=== PATIENT | male | born 1930 | race Caucasian/White ===

== ENCOUNTER 2016-09-20 12:22 | Emergency (ER) | payer MEDICARE ==
[2016-09-20] MEDS ORDERED: POVIDONE IODINE 10 % 15 ML UD TOP ONE (12:35)
--- NOTE | 2016-09-20 13:00 | ED.PDOC ---
History of Present Illness - General Chief Complaint: Upper Extremity Injury Stated Complaint: laceration 4th and 5th digit right hand Time Seen by Provider: 09/20/16 12:57 Source: patient, family Exam Limitations: no limitations - History of Present Illness Initial Comments: He stated was going down the orthodoxy stair step he missed one of the step slipped fell off the floor landing on his right hand,no neck,head hip injury or pain. Occurred: just prior to arrival Pain - Upper Extremity: moderate: Hand, right Method of Injury: fell Improving Factors: nothing Worsening Factors: movement Allergies/Adverse Reactions: Allergies NO KNOWN ALLERGY Allergy (Verified 09/20/16 12:31) Home Medications: Ambulatory Orders Acetaminophen W/ Codeine [Tylenol w/Codeine 300-30 mg] 1 tab PO TID PRN #14 tab 09/20/16 Cephalexin 1,000 mg PO BID #30 cap 09/20/16 Review of Systems - Review of Systems Constitutional: States: no symptoms reported EENTM: States: no symptoms reported Respiratory: States: no symptoms reported Cardiology: States: no symptoms reported Gastrointestinal/Abdominal: States: no symptoms reported Genitourinary: States: no symptoms reported Musculoskeletal: States: no symptoms reported Skin: States: other - laceration finger right 5th digit Neurological: States: no symptoms reported Endocrine: States: no symptoms reported Past Medical History (General) - Patient Medical History Hx Stroke: No Hx Cardiac Disorders: Yes Hx Congestive Heart Failure: No Hx Diabetes: No Hx Cancer: Yes - neck Surgical History: coronary bypass surgery, other - neck,hernia repair - Vaccination History Hx Influenza Vaccination: Yes Hx Pneumococcal Vaccination: Yes - Social History Hx Tobacco Use: No Family Medical History - Family History Father Family History: No Known Living Status: Hx Family Hypertension: Yes - parents Hx Cardiac Disease: Yes - parents Physical Exam - Physical Exam General Appearance: Alert, Comfortable, No apparent distress Eyes, Ears, Nose, Throat Exam: PERRL/EOMI, normal ENT inspection Neck: non-tender, full range of motion, supple Cardiovascular/Respiratory: regular rate, rhythm, no M/R/G, normal peripheral pulses, no JVD Abdominal Exam: non-tender, no organomegaly Shoulder Exam: normal inspection, non-tender, no evidence of injury, normal ROM Elbow/Forearm Exam: normal inspection, non-tender, no evidence of injury, normal ROM Wrist Exam: normal inspection, non-tender, no evidence of injury Hand Exam: laceration - 3 cm 4th and 5th digit, limited ROM - dislocated dip joint 5th digit right, soft tissue tenderness Neuro/Tendon: normal sensation, normal motor functions, normal tendon functions Mental Status: alert, oriented x 3 Progress - EKG/XRAY/CT XRAY: hand - right dip joint 5th digit dislocated Procedures - Joint Reduction 5th finger Reduction Attempts: 1 Pre-Procedure NV Exam: No Post Joint Reduction Film: no fracture seen - Laceration/Wound Repair Right Finger Wound Length (cm): 3 - laceration (R) 4th/5th digit Wound's Depth, Shape: superficial, irregular Wound Explored: no foreign body removed Irrigated w/ Saline (cc's): 50 Betadine Prep?: Yes Anesthesia: 1% Lidocaine Volume Anesthetic (cc's): 10 Layer Closure?: No Sterile Dressing Applied?: Yes Splint Applied?: Yes - maximiliano taping (r) 4th/5th digit Departure - Departure Clinical Impression: Fall down steps Qualifiers: Encounter type: initial encounter Qualifier Code: (W10.8XXA) Fall (on) (from) other stairs and steps, initial encounter Finger laceration with complication Qualifiers: Encounter type: initial encounter Qualifier Code: (S61.219A) Laceration without foreign body of unspecified finger without damage to nail, initial encounter Dislocation of finger, interphalangeal joint, right, open Qualifiers: Encounter type: initial encounter Qualifier Code: (S63.279A) Dislocation of unspecified interphalangeal joint of unspecified finger, initial encounter Time of Disposition: 14:05 Disposition: Discharge to Home or Self Care Condition: Good Departure Forms: ED Discharge - Pt. Copy, Patient Portal Self Enrollment Instructions: How to Care for a Surgical Wound-Stitches Referrals: Cedrick Silveira III, MD [Primary Care Provider] - 1-2 Weeks Prescriptions: Cephalexin 1,000 mg PO BID #30 cap Acetaminophen W/ Codeine [Tylenol w/Codeine 300-30 mg] 1 tab PO TID PRN #14 tab PRN Reason: Pain Home Medications: Ambulatory Orders Acetaminophen W/ Codeine [Tylenol w/Codeine 300-30 mg] 1 tab PO TID PRN #14 tab 09/20/16 Cephalexin 1,000 mg PO BID #30 cap 09/20/16 Additional Instructions: RETURN TO EMERGENCY ROOM NEEDED;REMOVAL OF SUTURES 10/02/2016 [facility]; Follow up with marie conrad in one week as needed
--- NOTE | 2016-09-20 13:01 | RAD ---
EXAM DESCRIPTION: X-RAY 5th digit of the right hand . CLINICAL HISTORY: Fall and pain in the 5th digit COMPARISON: None TECHNIQUE: 3.0 views of the 5th digit of the right hand. FINDINGS: There is posterolateral dislocation of the distal phalanx of the 5th digit of the left hand. The adjacent soft tissues are unremarkable . There is no visualization of radiopaque foreign bodies in the soft tissues. IMPRESSION: There is posterolateral dislocation of the distal phalanx of the 5th digit of the left hand. Electronically signed by: Bhupendra Harvey MD 09/20/2016 12:58
[2016-09-20] MEDS ORDERED: LIDOCAINE 1% 10 ML VIAL INJ ONE (13:10)
[2016-09-20] MEDS ORDERED: NEOMYCIN-BACITRACIN-POLYMYXIN 0.9 GM UD TOP ONE (13:41)
[2016-09-20] MEDS ORDERED: TETANUS-DIPHTHERIA TOXOIDS (TD 1 EA SYG IM ONE (14:02)
--- NOTE | 2016-09-20 14:23 | RAD ---
EXAM DESCRIPTION: X-RAY right 5th digit . CLINICAL HISTORY: Status post reduction of the dislocated 5th digit of the right hand COMPARISON: Pre reduction study done on the same day. TECHNIQUE: 3.0 views of the 5th digit of the right hand. FINDINGS: There is interval successful reduction of the dislocated distal phalanx of the 5th digit of the right hand. The remainder of the bones of the 5th digit of the right hand are intact The soft tissues are unremarkable IMPRESSION: There is interval successful reduction of the dislocated distal phalanx of the 5th digit of the right hand. The remainder of the bones of the 5th digit of the right hand are intact Electronically signed by: Bhupendra Harvey MD 09/20/2016 14:20
[2016-09-20 14:40] VITALS: BP 146/73; TEMP 98.2; O2SAT 97
== END 2016-09-20 14:39 | disposition home or self-care (01) ==
LOC: ER 12:22
DX: S61.218A Laceration without foreign body of other finger without damage to nail, initial encounter (principal); S63.276A Dislocation of unspecified interphalangeal joint of right little finger, initial encounter; Z95.1 Presence of aortocoronary bypass graft; W10.9XXA Fall (on) (from) unspecified stairs and steps, initial encounter; Y92.22 Religious institution as the place of occurrence of the external cause

== ENCOUNTER → 2017-01-20 | Outpatient (CLI) | payer MEDICARE | END | disposition home or self-care (01) | LOC: GMAL 10:35 | PROVIDERS: ATTEND Family Medicine | DX: D51.3 Other dietary vitamin B12 deficiency anemia (principal); E55.9 Vitamin D deficiency, unspecified ==

== ENCOUNTER → 2017-06-22 | Outpatient (CLI) | payer MEDICARE | END | disposition home or self-care (01) | LOC: GMAL 10:19 | PROVIDERS: ATTEND Family Medicine | DX: D51.3 Other dietary vitamin B12 deficiency anemia (principal); I10 Essential (primary) hypertension; Z79.899 Other long term (current) drug therapy ==

== ENCOUNTER → 2018-01-17 | Outpatient (CLI) | payer MEDICARE | LOC: GMAL 10:45 | PROVIDERS: ATTEND Family Medicine | DX: D51.3 Other dietary vitamin B12 deficiency anemia (principal); I50.89 Other heart failure; R53.83 Other fatigue; E55.9 Vitamin D deficiency, unspecified; Z79.899 Other long term (current) drug therapy ==

== ENCOUNTER → 2018-03-31 | Outpatient (CLI) | payer MEDICARE ==
--- NOTE | 2018-03-31 16:49 | MRI ---
EXAM DESCRIPTION: Brain w/wo Contrast: Magnetic Resonance Imaging. CLINICAL HISTORY: R42. Dizziness and giddiness. COMPARISON: MRI scan of the brain without contrast January 2010. TECHNIQUE: Multiplanar, high-field MRI, multiple conventional sequences, without and with gadolinium IV contrast. No adverse reactions. Multiple axial diffusion sequences. FINDINGS: Bilateral multiple foci of hyperintense FLAIR and T2-weighted signal in the periventricular white matter and shahid-white matter junctions of the cerebral hemispheres. Relatively symmetric except for involvement of the left periventricular occipital lobe extending to the cortex with encephalomalacia. Also involvement of the subcortical left occipital white matter at the vertex. Normal signal in the bilateral basal ganglia. No hemorrhage, no cerebral edema, no mass-effect. Normal contrast enhancement. Normal signal in the brainstem and cerebellar hemispheres. No hemorrhage, no cerebral edema, no mass-effect. Normal contrast enhancement. Concordance of the diffusion and non-diffusion sequences with no evidence of acute or subacute infarction. Cortical sulci, ventricles, and other CSF spaces, and the subdural spaces are normally configured for the patient's age. No effacement or displacement. No midline shift. No extra-axial hemorrhage. Normal contrast enhancement. Normal flow signal void in the major vessels of the [place], and the venous sinuses. IACs are symmetric bilaterally. Minimal fluid signal in the inferior right mastoid air cells. No mass effect in the bilateral Cerebellopontine angles. Normal contrast enhancement. Pituitary gland occupies most of the sella. Normal contrast enhancement. Base of the cerebellar tonsils is above the foramen magnum. Diffuse mucoperiosteal thickening in the paranasal sinuses with minimal air-fluid level.. The bony calvarium is intact. IMPRESSION: 1. 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 Not associated with hemorrhage, cerebral edema, mass effect, abnormal contrast enhancement or diffusion restriction. Slightly more progressive since the prior study. Larger region of encephalomalacia in the left occipital lobe since the prior study. 2. No diffusion restriction with no evidence of acute or subacute infarction in the brain posterior fossa or brainstem. 3. 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 Electronically signed by: Hayes Dutton MD 03/31/2018 4:48 PM CDT
== END ==
LOC: MRI 08:00
PROVIDERS: ATTEND Family Medicine
DX: R42 Dizziness and giddiness (principal); G93.89 Other specified disorders of brain; J32.9 Chronic sinusitis, unspecified

== ENCOUNTER → 2018-05-31 | Outpatient (CLI) | payer MEDICARE ==
--- NOTE | 2018-05-31 17:36 | US ---
EXAM DESCRIPTION: Carotid Duplex CLINICAL HISTORY: UNSTEADINESS ON FEET COMPARISON: Previous study October 03, 2014 TECHNIQUE: Carotid Doppler ultrasound FINDINGS: Right Submitted images show no significant stenosis in the common carotid, internal carotid or external carotid arteries. Extensive plaque is seen in the carotid vessels and of the bifurcation. Findings appear similar to previous study. Transverse images show 74% area stenosis of the right carotid bulb with 72% stenosis of the proximal right ICA. Flow velocities are not significantly elevated but the velocity ratio of 2.1 is increased suggesting 60-79% stenosis (NASCET criteria). The following flow velocities were obtained: Common carotid artery peak systolic flow velocity measures 48 centimeters per second. Internal carotid artery peak systolic flow velocity measures 105 centimeters per second. External carotid artery peak systolic flow velocity measures 23 centimeters per second. Flow in the right vertebral artery is antegrade. The right internal carotid to common carotid peak systolic flow velocity ratio equals 2.1 which is elevated. Left Submitted images show extensive arteriosclerotic plaque in the common carotid artery and at the carotid bifurcation. Transverse images show 23% area stenosis of the proximal left ICA. The following flow velocities were obtained: Common carotid artery peak systolic flow velocity measures 95 centimeters per second. Internal carotid artery peak systolic flow velocity measures 53 centimeters per second. External carotid artery peak systolic flow velocity measures 74 centimeters per second. Flow in the left vertebral artery is antegrade. The left internal carotid to common carotid peak systolic flow velocity ratio of 0.6 is normal. IMPRESSION: Elevated ICA to CCA peak systolic flow velocity ratio on the right suggests 60-79% stenosis of the proximal right ICA or carotid bulb. See above. Electronically signed by: Luis Blake MD 05/31/2018 5:35 PM CDT
== END ==
LOC: US 13:30
DX: I63.29 Cerebral infarction due to unspecified occlusion or stenosis of other precerebral arteries (principal); R26.81 Unsteadiness on feet

== ENCOUNTER → 2018-07-19 | Outpatient (CLI) | payer MEDICARE | LOC: GMAL 10:11 | PROVIDERS: ATTEND Family Medicine | DX: D51.3 Other dietary vitamin B12 deficiency anemia (principal) ==

== ENCOUNTER 2018-12-22 07:08 | Emergency (ER) | payer MEDICARE ==
[2018-12-22] MEDS ORDERED: FUROSEMIDE INJ 40 MG/4 ML VIAL ONE (07:19)
[2018-12-22] MEDS ORDERED: IPRATROPIUM/ALBUTEROL 3 ML VIAL NEB ONE ×2 (07:25→07:26)
[2018-12-22] MEDS ORDERED: IPRATROPIUM BROMIDE NEBS 0.5 MG/2.5 ML VIAL NEB ONE ×2 (07:27→07:29)
[2018-12-22] MEDS ORDERED: FUROSEMIDE INJ 40 MG/4 ML VIAL IV ONE (07:27)
[2018-12-22] MEDS ORDERED: LEVALBUTEROL NEBS 1.25 MG/3 ML VIAL NEB ONE ×2 (07:27→07:29)
[2018-12-22] MEDS ORDERED: METOPROLOL TARTRATE INJ 5 MG/5 ML VIAL IV ONE ×2 (07:29→07:30)
[2018-12-22] MEDS ORDERED: ASPIRIN TABLET 325 MG TAB PO ONE (07:29)
--- NOTE | 2018-12-22 07:41 | RAD ---
EXAM: XR Chest, 1 View CLINICAL HISTORY: The patient is 88 years old and is Male; sob TECHNIQUE: Frontal view of the chest. COMPARISON: Chest radiograph from 03/03/2013 FINDINGS: LUNGS: Unremarkable. No consolidation. PLEURAL SPACE: Unremarkable. No pneumothorax. HEART: Mild enlargement of the cardiac silhouette. MEDIASTINUM: Unremarkable. BONES/JOINTS: Post-sternotomy changes are noted. No acute fracture. IMPRESSION: No acute findings visualized in the chest. Electronically signed by: Suma Vaughn MD 12/22/2018 7:37 AM CDT
[2018-12-22] MEDS ORDERED: NITROGLYCERIN/D5W IV 50,000 MCG in PREMIX BOTTLE 1 BOTTLE IVS SCH (08:00)
[2018-12-22] MEDS ORDERED: NITROGLYCERIN/D5W IV 250 ML IVS ONE (08:00)
[2018-12-22] MEDS ORDERED: CEFEPIME 1 GM in SODIUM CHLORIDE 0.9% 50ML 50 ML IVPB ONE (08:42)
[2018-12-22] MEDS ORDERED: AZITHROMYCIN IV 500 MG in SODIUM CHLORIDE 0.9% 250ML 250 ML IVPB ONE (08:42)
[2018-12-22] MEDS ORDERED: CEFEPIME 2 GM VIAL ONE (08:51)
[2018-12-22] MEDS ORDERED: SODIUM CHLORIDE 0.9% 50ML 50 ML ONE (08:51)
[2018-12-22] MEDS ORDERED: ACETYLCYSTEIN 20 % 6,000 MG/30 ML VIAL PO ONE (09:01)
[2018-12-22] MEDS ORDERED: AZITHROMYCIN IV 500 MG VIAL IVPB ONE (10:06)
[2018-12-22] MEDS ORDERED: SODIUM CHLORIDE 0.9% 250ML 250 ML ONE (10:06)
--- NOTE | 2018-12-22 10:17 | CT ---
EXAM DESCRIPTION: CTA Chest: Computed Tomography. CLINICAL HISTORY: ro pe aortic path, ddmer, trop, pulm edema COMPARISON: CT scan chest with contrast 03/09/2013. TECHNIQUE: Spiral-axial scans at 2.5 x 2.5 mm intervals through the pulmonary arteries and chest after bolus infusion of IV contrast. Lung algorithm 2.5-mm axial reconstructions. Coronal and sagittal 2.0 Mm reconstructions. 10.0 mm PE oblique 3-D reformatted images. No adverse reactions. Total Exam DLP: 845.34 mGy-cm. This exam was performed according to our departmental CT dose-optimization program which includes automated exposure control, adjustment of the mA and/or kV according to patient size and/or use of iterative reconstruction technique; to reduce radiation dose to as low as reasonably achievable (ALARA). FINDINGS: Pulmonary arteries: The pulmonary arterial system is well visualized with contrast from the main pulmonary artery to the proximal subsegmental pulmonary artery branches bilaterally and no filling defects are seen. The peripheral distal pulmonary artery branches are symmetric bilaterally. Heart and great vessels: Atherosclerotic calcifications in the proximal brachiocephalic vessels, thoracic aorta with no significant stenosis or aneurysm. Coronary artery calcifications. Lung and airways: Pleural parenchymal scarring inferior lingula and inferior left lower lobe. No abnormal nodules bilaterally. Pleural space: Bilateral apical pleural thickening more on the right than the left. This has progressed since the prior study.. Intermittent pleural thickening bilaterally. Chronic effusion or loculation in the left base. No pneumothorax. Elevation of the posterior right hemidiaphragm containing abdominal fat and tissues posterior to the liver is stable. Mediastinum and cherelle: No soft tissue masses or adenopathy is visualized. Enlarging hiatal hernia. Soft tissues of the chest wall, axilla, and lower neck: No enlarged lymph nodes. No soft tissue masses or edema. Heterogeneous thyroid gland. Venous collaterals around the upper anterior left chest wall and shoulder. Upper abdomen: No fatty stranding, fascial thickening, free air or fluid in the included peritoneal space. Adrenal glands and included spleen and gallbladder are unremarkable. Atherosclerotic changes in the aorta and major branch vessels included in the upper abdomen. Osseous structures: Spondylosis thoracic spine. Prior sternotomy. 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 No lytic or blastic lesions. IMPRESSION: 1. No CTA evidence of acute pulmonary embolus. No aortic aneurysm or dissection. 2. Progressive right apical pleural thickening with left base increasing pleural thickening, chronic effusion or loculation. Compared to prior chest CT scan February 2013. Correlate with pulmonary function. 3. Enlarging hiatal hernia. Stable right hemidiaphragm eventration or posterior hernia, not containing bowel. Electronically signed by: Hayes Dutton MD 12/22/2018 10:14 AM CDT
[2018-12-22] MEDS ORDERED: ENOXAPARIN SODIUM 80 MG/0.8 ML SYG SUBCU ONE (10:21)
--- NOTE | 2018-12-22 12:24 | ED.PDOC ---
History of Present Illness - General Chief Complaint: Respiratory Problem Stated Complaint: SOB AND CONGESTION Time Seen by Provider: 12/22/18 07:15 Source: patient Exam Limitations: no limitations - History of Present Illness Initial Comments: the patient is an 88-year-old male presenting to the emergency room secondary to weakness and shortness of breath. Symptoms started yesterday afternoon when the patient started to get a severe sore throat followed by a significant cough. After a couple of hours into the coughing he developed left lower anterior chest pain with coughing. Again the chest pain was only with coughing. Overnight he became progressively short of breath and weak. He called EMS this morning. Upon arrival by EMS his oxygen saturations were in the low 70s. He did have significant irregularity in his telemetry monitoring. Even upon initial arrival here on telemetry it was difficult to tell whether this was atrial fibrillation or worse sinus rhythm with frequent PACs and PVCs. Initial EKG showed ST elevation in lead [address] depression and T-wave inversion in leads 1 and aVL. Repeat EKG after correction of hypoxia shows tho se changes have improved significantly. No significant ST elevation in lead 3 and there is minimal ST depression but still T-wave inversions in leads 1 and aVL. The patient was formerly in pulmonary edema upon arrival. This did improve with oxygenation and diuresis. The patient is breathing much more easily after that. His lungs however are still not clear. No wheezing. He is not tight. Chest x-ray actually looked unexpectedly good given his clinical presentation. he is still requiring 40% FiO2 at this time. Timing/Duration: other - 18 hours Severity: severe Improving Factors: medication Worsening Factors: nothing Associated Symptoms: chest pain - with cough only, cough, diaphoresis, malaise, shortness of breath, weakness Allergies/Adverse Reactions: Allergies NO KNOWN ALLERGY Allergy (Verified 09/20/16 12:31) Home Medications: Ambulatory Orders Amlodipine Besylate 5 mg PO DAILY 12/22/18 Aspirin [Aspirin Adult Low Dose] 81 mg PO DAILY 12/22/18 Irbesartan 300 mg PO DAILY 12/22/18 Rosuvastatin Calcium [Crestor] 5 mg PO .3TIMESWEEKLY 12/22/18 Travoprost [Travatan Z] 1 drop BOTH_EYES DAILY 12/22/18 Review of Systems - Review of Systems Constitutional: States: malaise, weakness EENTM: States: throat pain Respiratory: States: cough, short of breath, wheezing Cardiology: States: chest pain - with cough only, edema - +1 Gastrointestinal/Abdominal: States: no symptoms reported Genitourinary: States: no symptoms reported Musculoskeletal: States: no symptoms reported Skin: States: no symptoms reported Neurological: States: no symptoms reported Endocrine: States: no symptoms reported All other Systems: No Change from Baseline Past Medical History (General) - Patient Medical History Hx Stroke: Yes - TIA Hx Cardiac Disorders: Yes Hx Congestive Heart Failure: No Hx Diabetes: No Hx Cancer: Yes - neck Hx Hepatitis C: No Surgical History: coronary bypass surgery - Vaccination History Hx Tetanus, Diphtheria Vaccination: No Hx Influenza Vaccination: Yes Hx Pneumococcal Vaccination: Yes - Social History Hx Tobacco Use: No Hx Alcohol Use: No Hx Substance Use: No Hx Substance Use Treatment: No Hx Depression: No Family Medical History - Family History Father Family History: No Known Living Status: Hx Family Hypertension: Yes - parents Hx Cardiac Disease: Yes - parents Physical Exam - Physical Exam General Appearance: Alert, Anxious, Frail, Obvious distress, Ill Appearing Eye Exam: bilateral normal Ears, Nose, Throat: hearing grossly normal, normal pharynx, nasal congestion Neck: full range of motion, supple Respiratory: respiratory distress, accessory muscle use, crackles, rales, rhonchi, wheezing - mild Cardiovascular/Chest: normal peripheral pulses, no edema, tachycardia - initially irregular but regularized with oxygenation. 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 as tested, alert, oriented x 3 Skin Exam: pallor Comments: Vital Signs - 24 hr 12/22/18 12/22/18 12/22/18 07:22 07:29 07:44 Temperature 99.2 F Pulse Rate 91 H Pulse Rate [ 106 H 106 H MONITOR] Respiratory 22 20 18 Rate Blood Pressure 146/59 [RA] O2 Sat by Pulse 77 L 95 Oximetry 12/22/18 12/22/18 12/22/18 08:22 09:36 10:33 Temperature Pulse Rate Pulse Rate [ 95 H 90 86 MONITOR] Respiratory 20 20 20 Rate Blood Pressure 120/84 139/69 130/69 [RA] O2 Sat by Pulse 93 L 91 L 92 L Oximetry 12/22/18 12:08 Temperature Pulse Rate Pulse Rate [ 80 MONITOR] Respiratory 20 Rate Blood Pressure 114/59 [RA] O2 Sat by Pulse 92 L Oximetry Progress - Progress Progress: 12/22/18 12:29 the patient's 88-year-old male presenting with acute pulmonary edema and what is essentially a non-ST elevation myocardial infarction, whether from global hypoxia or from focal coronary disease I cannot say with certainty at this point. He has not had any chest pain currently. Troponin has risen here from 0.14-2.5. He is breathing much more easily at this point. Pulmonary edema has improved significantly with oxygenation and diuresis. He does still have some scattered rhonchi and rales. It is very possible given his starting symptoms yesterday that he was developing a bronchitis at that time that started his deterioration. To that end we did do a blood and sputum culture. He has received a dose of cefepime and azithromycin. He did receive one breathing treatment which I seriously doubt made much difference. 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 Moody in [place]. He is unable to go back to [place] secondary to the hospital being. With extended delays already in the emergency room. The patient will be transferred to [facility] for continued care. He is on a low-flow nitroglycerin drip still. He has received aspirin and Lovenox. He has not received any Plavix to this point. CT angiogram of the chest trying to determine the cause of his deterioration failed to show any aortic or pulmonary artery pathology. He did receive a dose of Mucomyst for renal protective purposes. Renal function will need to be monitored of course. Transferring for higher level of care. critical care time spent on this patient excluding otherwise billable procedures is 45 minutes. - Results/Orders Results/Orders: chest x-ray shows no obvious acute pathology. There is cardiomegaly. There is some mild hilar congestion. CT angiogram of the chest done due to elevated d-dimer and acute pulmonary edema showed no evidence of any pulmonary embolus or acute aortic pathology. He does have some increased pleural thickening or scarring of the right apex and the left lung base. There is additionally either a chronic left lower effusion or pleural thickening. Initial EKG showed a rate of 106 beats per minute. It is actually normal sinus rhythm not atrial fibrillation but with frequent PACs and PVCs. There is ST segment elevation by about 2 mm in lead 3 and about 2 mm depression in lead 1 and aVL. There is also flipped T waves in leads 1 and aVL. There is poor R- wave progression in anterior leads which is not new compared to previous EKGs. Additionally p waves are very small which is again not new compared to previous EKGs. Borderline QT interval. repeat EKG after oxygenating the patient shows essentially resolution of ST elevation in lead 3. Near resolution of ST depression in leads 1 and aVL. Flipped T waves persist. Mild J-point elevation in lead V3. Normal sinus rhythm. There is possibly the question of delta waves in leads 1 and aVL. Laboratory Tests 12/22/18 12/22/18 12/22/18 06:58 06:58 06:58 WBC 14.6 H RBC 4.28 L Hgb 12.8 L Hct 38.7 L MCV 90.4 MCH 29.9 MCHC 33.1 RDW 14.3 Plt Count 246 MPV 7.8 Absolute Neuts (auto) 12.70 H Absolute Lymphs (auto) 1.00 Absolute Monos (auto) 0.80 Absolute Eos (auto) 0.00 Absolute Basos (auto) 0.00 Neutrophils % 87.3 H Lymphocytes % 6.8 L Monocytes % 5.4 Eosinophils % 0.2 L Basophils % 0.3 PT 9.9 INR 0.99 PTT (SP) 22.4 D-Dimer, Quantitative 1.85 H* Sodium 139 Potassium 3.9 Chloride 105 Carbon Dioxide 19 L Anion Gap 18.9 H BUN 24 H Creatinine 1.54 H BUN/Creatinine Ratio 15.6 Random Glucose 142 H Serum Osmolality 284.0 Calcium 8.5 Magnesium 2.0 Total Bilirubin 0.8 AST 21 ALT 16 Alkaline Phosphatase 79 Creatine Kinase 84 CK-MB (CK-2) 6.2 H* CK-MB (CK-2) % 7.38 H Troponin I 0.14 H* B-Natriuretic Peptide 294.0 H* Serum Total Protein 7.2 Albumin 4.1 Globulin 3.1 Albumin/Globulin Ratio 1.3 Group A Strep Rapid 12/22/18 12/22/18 08:50 10:22 WBC RBC Hgb Hct MCV MCH MCHC RDW Plt Count MPV Absolute Neuts (auto) Absolute Lymphs (auto) Absolute Monos (auto) Absolute Eos (auto) Absolute Basos (auto) Neutrophils % Lymphocytes % Monocytes % Eosinophils % Basophils % PT INR PTT (SP) D-Dimer, Quantitative Sodium Potassium Chloride Carbon Dioxide Anion Gap BUN Creatinine BUN/Creatinine Ratio Random Glucose Serum Osmolality Calcium Magnesium Total Bilirubin AST ALT Alkaline Phosphatase Creatine Kinase 231 H* D CK-MB (CK-2) 39.4 H* D CK-MB (CK-2) % 17.06 H Troponin I 2.57 H* B-Natriuretic Peptide Serum Total Protein Albumin Globulin Albumin/Globulin Ratio Group A Strep Rapid Negative - EKG/XRAY/CT CT Ordered: No CT Interpretation Call Back: No Departure - Departure Clinical Impression: Acute pulmonary edema, Non-ST elevation ID (NSTEMI) Acute exacerbation of CHF (congestive heart failure) Qualifiers: Heart failure type: combined systolic and diastolic Qualified Code(s): I50.43 - Acute on chronic combined systolic (congestive) and diastolic (congestive) heart failure Acute bronchitis Qualifiers: Bronchitis organism: unspecified organism Qualified Code(s): J20.9 - Acute bronchitis, unspecified Disposition: Transfer to Hospital Condition: Serious Departure Forms: ED Discharge - Pt. Copy, Patient Portal Self Enrollment Referrals: Cedrick Silveira III, MD [Primary Care Provider] - 1-2 Weeks Home Medications: Ambulatory Orders Amlodipine Besylate 5 mg PO DAILY 12/22/18 Aspirin [Aspirin Adult Low Dose] 81 mg PO DAILY 12/22/18 Irbesartan 300 mg PO DAILY 12/22/18 Rosuvastatin Calcium [Crestor] 5 mg PO .3TIMESWEEKLY 12/22/18 Travoprost [Travatan Z] 1 drop BOTH_EYES DAILY 12/22/18 Transfer to Outside Facility - Transfer Information Accepting Provider:: dr enciso Accepting Facility: [facility] Reason for Transfer: required specialist not available
[2018-12-22 13:42] VITALS: BP 142/77; TEMP 98.9; O2SAT 94
== END 2018-12-22 13:42 | disposition short-term general hospital (02) ==
LOC: ER 07:08
DX: I21.4 Non-ST elevation (NSTEMI) myocardial infarction (principal); I50.43 Acute on chronic combined systolic (congestive) and diastolic (congestive) heart failure; J20.9 Acute bronchitis, unspecified; I49.1 Atrial premature depolarization; I49.3 Ventricular premature depolarization; Z86.73 Personal history of transient ischemic attack (TIA), and cerebral infarction without residual deficits; Z95.1 Presence of aortocoronary bypass graft; Z85.89 Personal history of malignant neoplasm of other organs and systems; Z79.82 Long term (current) use of aspirin; Z79.899 Other long term (current) drug therapy
CPT/HCPCS: 36415; 71045; 71275; 80053; 82550; 82553; 83735; 83880; 84484; 85025; 85379; 85610; 85730; 87040; 87070; 87502; 87880; 93005; 94640; A4216; J0456; J0692; J1650; J1940; J7050; J7614; J7644

== ENCOUNTER → 2019-01-09 | Outpatient (CLI) | payer MEDICARE | LOC: BFHH 14:11 | PROVIDERS: ATTEND Family Medicine | DX: I10 Essential (primary) hypertension (principal); I50.9 Heart failure, unspecified; R30.0 Dysuria ==

== ENCOUNTER → 2019-01-16 | Outpatient (CLI) | payer MEDICARE | LOC: GMAL 14:40 | PROVIDERS: ATTEND Family Medicine | DX: I50.9 Heart failure, unspecified (principal); I21.3 ST elevation (STEMI) myocardial infarction of unspecified site; I10 Essential (primary) hypertension ==

== ENCOUNTER → 2019-03-14 | Outpatient (CLI) | payer MEDICARE | LOC: BFHH 09:26 | PROVIDERS: ATTEND Family Medicine | DX: N18.3 Chronic kidney disease, stage 3 (moderate) (principal); I12.9 Hypertensive chronic kidney disease with stage 1 through stage 4 chronic kidney disease, or unspecified chronic kidney disease; I50.89 Other heart failure ==

== ENCOUNTER 2019-04-17 06:20 | Inpatient (IN) | payer MEDICARE ==
[2019-04-17] MEDS ORDERED: NITROGLYCERIN 0.4 MG 25 EA TAB SL ONE ×2 (06:38→06:44)
[2019-04-17] MEDS ORDERED: BUMETANIDE 0.25 MG/ML VIAL IV ONE (06:43)
[2019-04-17] MEDS ORDERED: IPRATROPIUM/ALBUTEROL 3 ML VIAL NEB ONE ×2 (06:51→06:52)
--- NOTE | 2019-04-17 07:02 | ED.PDOC ---
History of Present Illness - General Source: patient Exam Limitations: no limitations - History of Present Illness Initial Comments: Martin Oconnor 88 y/o male brought by EMS with SOB chest pressure all over this morning.Had history of CABG 20 years ago and NM 4 months ago. Timing/Duration: 4-6 hours Severity: moderate Activities at Onset: rest Possible Cause: occasional episodes Improving Factors: nothing Worsening Factors: other - see hpi Associated Symptoms: wheezing Respiratory Risk Factors: other - cardiac problems <Kt Mcfarlane - Last Filed: 04/17/19 07:04> - General Source: patient Exam Limitations: no limitations <Jairo Cheung - Last Filed: 04/17/19 09:43> - General Chief Complaint: Respiratory Problem Stated Complaint: SOB, chest pressure, wheezing, clammy Time Seen by Provider: 04/17/19 06:51 - History of Present Illness Allergies/Adverse Reactions: Allergies NO KNOWN ALLERGY Allergy (Verified 09/20/16 12:31) Home Medications: Ambulatory Orders Aspirin [Aspirin Adult Low Dose] 81 mg PO DAILY 12/22/18 Travoprost [Travatan Z] 1 drop BOTH_EYES DAILY 12/22/18 Atorvastatin Calcium 40 mg PO BEDTIME 04/17/19 Carvedilol 6.25 mg PO BID 04/17/19 Clopidogrel Bisulfate [Clopidogrel] 75 mg PO DAILY 04/17/19 Furosemide 20 mg PO DAILY 04/17/19 Potassium Chloride [K-Tab] 10 meq PO DAILY 04/17/19 Sacubitril-Valsartan [Entresto 49-51 mg] 1 tab PO DAILY 04/17/19 Review of Systems - Review of Systems Constitutional: States: no symptoms reported EENTM: States: no symptoms reported Respiratory: States: see HPI, short of breath Cardiology: States: see HPI Gastrointestinal/Abdominal: States: no symptoms reported Genitourinary: States: no symptoms reported All other Systems: Reviewed and Negative, No Change from Baseline <Kt Mcfarlane - Last Filed: 04/17/19 07:04> Past Medical History (General) - Patient Medical History Hx Seizures: No Hx Stroke: Yes - TIA Hx Dementia: No Hx Asthma: No Hx of COPD: No Hx Cardiac Disorders: Yes - NM December 2018 Hx Congestive Heart Failure: No Hx Pacemaker: No Hx Hypertension: No Hx Thyroid Disease: No Hx Diabetes: No Hx Gastroesophageal Reflux: No Hx Renal Disease: No Hx Cancer: Yes - neck Hx of HIV: No Hx Hepatitis C: No Hx MRSA: No Surgical History: coronary bypass surgery, other - neck surgery-Cancer - Vaccination History Hx Tetanus, Diphtheria Vaccination: No Hx Influenza Vaccination: Yes Hx Pneumococcal Vaccination: Yes - Social History Hx Tobacco Use: No Hx Alcohol Use: No Hx Substance Use: No Hx Substance Use Treatment: No Hx Depression: No <MaeveWillo R - Last Filed: 04/17/19 07:04> Family Medical History - Family History Father Family History: No Known Living Status: Hx Family Hypertension: Yes - parents Hx Cardiac Disease: Yes - parents Hx Family;Other: both parents when he was young <MaeveMelissaMeraz R - Last Filed: 04/17/19 07:04> Physical Exam - Physical Exam General Appearance: Alert, Anxious, Ill Appearing Eyes, Ears, Nose, Throat Exam: normal ENT inspection, TMs normal Neck: supple, normal inspection Respiratory: respiratory distress - moderate, wheezing - bilaterally Cardiovascular/Chest: normal peripheral pulses, regular rate, rhythm, no murmur Peripheral Pulses: radial,right: 2+, radial,left: 2+ Gastrointestinal/Abdominal: non tender, soft, no organomegaly Extremity: no calf tenderness, pedal edema - 2+ bilaterally Neurologic: alert, oriented x 3 Skin Exam: normal color, warm/dry <AmeliaWill bryanto R - Last Filed: 04/17/19 07:04> Progress - Progress Progress: 04/17/19 07:08 Vital Signs - 8 hr 04/17/19 04/17/19 06:25 07:05 Temperature 97.9 F Pulse Rate 70 Pulse Rate [ 89 monitor] Respiratory 28 H 32 H Rate Blood Pressure 160/97 [Left Arm] O2 Sat by Pulse 92 L 96 Oximetry <MaeveMelissaMeraz R - Last Filed: 04/17/19 07:04> - Progress Progress: 04/17/19 09:40 Laboratory Tests 04/17/19 04/17/19 04/17/19 06:57 06:57 07:40 WBC 7.7 RBC 3.99 L Hgb 12.4 L Hct 37.0 L MCV 92.7 MCH 30.9 MCHC 33.4 RDW 14.5 Plt Count 232 MPV 7.9 Absolute Neuts (auto) 5.40 Absolute Lymphs (auto) 1.60 Absolute Monos (auto) 0.50 Absolute Eos (auto) 0.20 Absolute Basos (auto) 0.10 Neutrophils % 69.6 Lymphocytes % 20.5 Monocytes % 6.0 Eosinophils % 3.2 Basophils % 0.7 PT 10.6 INR 1.06 PTT (SP) 21.9 D-Dimer, Quantitative 1.63 H* Sodium 139 Potassium 4.4 Chloride 106 Carbon Dioxide 24 Anion Gap 13.4 BUN 22 H Creatinine 1.33 H BUN/Creatinine Ratio 16.5 Random Glucose 148 H Serum Osmolality 283.6 Calcium 8.6 Magnesium 2.2 Total Bilirubin 0.6 Direct Bilirubin 0.1 Indirect Bilirubin 0.5 AST 15 ALT 12 Alkaline Phosphatase 72 Creatine Kinase 50 CK-MB (CK-2) 2.2 CK-MB (CK-2) % Not Reportable Troponin I 0.02 B-Natriuretic Peptide 1160.0 H* Serum Total Protein 6.4 Albumin 3.7 Urine Color Yellow Urine Appearance Clear Urine pH 5.5 Ur Specific [place] 1.020 Urine Protein Negative Urine Glucose (UA) Negative Urine Ketones Negative Urine Blood Negative Urine Nitrite Negative Urine Bilirubin Negative Urine Urobilinogen 0.2 Ur Leukocyte Esterase Negative Urine RBC 0 Urine WBC 0 Ur Epithelial Cells 0 Amorphous Sediment Trace Urine Bacteria 0 BNP 1160. Troponin negative. EKG showed chronic LBBB with PVCs. CXR showed enlarged heart with bilatera infiltrates. SBP 200. Patient was given 2 mg of Bumex by Dr. Mcfarlane. Nitroglycerin drip started by nd. SBP went to 160. Urine outpute 400 cc. Patient's dyspnea improved. Admitted by Nannette Bustillo for CHF exacerbation/dyspnea. <Jairo Cheung - Last Filed: 04/17/19 09:43> Departure <Kt Mcfarlane - Last Filed: 04/17/19 07:04> - Departure Diet: other - as per hospitalist Activity: other - as per hospitalist <Jairo Cheung - Last Filed: 04/17/19 09:43> - Departure Clinical Impression: CHF exacerbation Disposition: Admit Patient Condition: Fair Departure Forms: ED Discharge - Pt. Copy, Patient Portal Self Enrollment Referrals: Cedrick Silveira III, MD [Primary Care Provider] - 1-2 Weeks Home Medications: Ambulatory Orders Aspirin [Aspirin Adult Low Dose] 81 mg PO DAILY 12/22/18 Travoprost [Travatan Z] 1 drop BOTH_EYES DAILY 12/22/18 Atorvastatin Calcium 40 mg PO BEDTIME 04/17/19 Carvedilol 6.25 mg PO BID 04/17/19 Clopidogrel Bisulfate [Clopidogrel] 75 mg PO DAILY 04/17/19 Furosemide 20 mg PO DAILY 04/17/19 Potassium Chloride [K-Tab] 10 meq PO DAILY 04/17/19 Sacubitril-Valsartan [Entresto 49-51 mg] 1 tab PO DAILY 04/17/19 Critical Care Note - Critical Care Note Total Time (mins): 100 <Jairo Cheung - Last Filed: 04/17/19 09:43>
--- NOTE | 2019-04-17 07:23 | RAD ---
EXAM DESCRIPTION: Chest,1 View CLINICAL HISTORY: chest pain FINDINGS/ IMPRESSION: Comparison 12/22/2018 Cardiomegaly. Vascular congestion with mild interstitial edema. Small left pleural effusion. Prior cardiac surgery. Lungs are hyperinflated. Apical pleural thickening similar to previous study No pneumothorax. No acute bony abnormality Electronically signed by: Jim Guerra MD 04/17/2019 7:22 AM CDT
[2019-04-17] MEDS ORDERED: NITROGLYCERIN/D5W IV 50,000 MCG in PREMIX BOTTLE 1 BOTTLE IVS SCH (07:30)
[2019-04-17] MEDS ORDERED: NITROGLYCERIN/D5W IV 250 ML IVS ONE (07:37)
[2019-04-17] MEDS ORDERED: NITROGLYCERIN 2% 1 GM UD TOP ONE (09:38)
--- NOTE | 2019-04-17 10:22 | HP ---
SUPERVISING PHYSICIAN: Pavel Gagnon MD CHIEF COMPLAINT: Shortness of breath. HISTORY OF PRESENT ILLNESS: This is an 88-year-old male patient who presented to the Emergency Room for 24 hours of shortness of breath. He does have a history of congestive heart failure as well as coronary artery disease. He also felt like some chest pressure, but it was more from the shortness of breath than the substernal pain. There is no fever, but he did have a productive cough with a thick, white sputum. There was no nausea, vomiting, diarrhea or constipation. His initial vital signs in the Emergency Room showed a temperature of 97.9 with a heart rate 89, blood pressure 160/97. It went up to 181/78. Respiratory rate 28 to 32. O2 saturation 90% on 3 liters nasal cannula. Laboratory studies were completed and showed WBC 7,700, hemoglobin 12.4, hematocrit 37. D-dimer was slightly elevated at 1.63. Electrolytes were basically within normal limits with the exception of his BUN was 22, creatinine 1.33. BNP was 1,160. Urinalysis was unremarkable. Chest x-ray shows cardiomegaly, vascular congestion with mild interstitial edema, small left pleural effusion, prior cardiac surgery. Lungs are hyperinflated. Apical pleural thickening similar to previous study. No pneumothorax, no acute bony abnormality. He was given some Bumex in the Emergency Room as well as put on a nitroglycerin drip. His blood pressure did come down to 157/81. The nitro drip was discontinued and he was given Nitro paste. I was called for hospital admission. PAST MEDICAL HISTORY: 1. Acute myocardial infarction. 2. Chronic renal insufficiency. 3. Coronary artery disease. 4. Congestive heart failure with a mild left atrial enlargement with moderate global hypokinesis of the left ventricle. His ejection fraction was 40% on his echocardiogram on 02/14/19. 5. Hypertension. 6. Hyperlipidemia. PAST SURGICAL HISTORY: 1. Coronary artery bypass graft, three vessel graft, 1990. 2. Right carotid endarterectomy, 1995. 3. Right eyelid surgery. 4. Benign parotid tumor excision, 2000. 5. Left carotid endarterectomy in 2009. ALLERGIES: NO KNOWN DRUG ALLERGIES. FAMILY HISTORY: Positive for liver failure, coronary artery disease and hypertension. SOCIAL HISTORY: He lives alone. He lives here in [place]. He is . He has a previous history of smoking cigarettes, but he quit in 1967. He denies any ETOH or illicit drug use. REVIEW OF SYSTEMS: GENERAL: Negative for fever, fatigue or weight changes. HEENT: Negative for sinus symptoms, ear pain, vision changes or sore throat. RESPIRATORY: As per history of present illness. CARDIAC: Negative for chest pain, palpitations or tachycardia. GASTROINTESTINAL: Negative for nausea, vomiting, diarrhea, constipation. GENITOURINARY: Negative for hematuria, dysuria or polyuria. SKIN: Negative for lesions or rashes. NEUROLOGIC: Negative for headache, weakness or seizures. PHYSICAL EXAMINATION: VITAL SIGNS: Temperature 97.1. Heart rate 71. Blood pressure 205/70. It is now down to 190/101. Respiratory rate 20. O2 saturation 96% on 3 liters nasal cannula. GENERAL: This is an 88-year-old male patient lying in his hospital bed. He is in no acute distress. HEENT: Normocephalic, atraumatic. Pupils are equal and reactive. NECK: Supple without mass. No discernible jugular venous distention. RESPIRATORY: Scattered crackles throughout and somewhat diminished at the bases. No wheezing. CARDIOVASCULAR: Regular rate and rhythm. GASTROINTESTINAL: Abdomen is soft, nondistended, nontender. Bowel sounds are positive. EXTREMITIES: No cyanosis, clubbing. He does have +2 pedal edema. Bilateral pedal pulses are palpable at +2. NEUROLOGIC: Awake, alert and oriented times three. Cranial nerves II-XII are grossly intact. SKIN: Warm and dry. LABORATORY: Labs and films are as per history of present illness. IMPRESSION: 1. Acute exacerbation of congestive heart failure, diastolic/systolic etiology and an ejection fraction of 40% per echocardiogram in 02/2019. 2. Hypertensive crisis, now resolved. 3. Chronic renal insufficiency with a baseline creatinine of 1.34. His creatinine on admission was 1.33. 4. Hypertension on medications. 5. Hyperlipidemia, currently on Lipitor. PLAN: I have admitted the patient to the hospital. He is under the congestive heart failure guidelines. I gave him some clonidine today shortly after admission when his blood pressure was so elevated. We will continue him on the Nitro paste for now. We will recheck his labs and a chest x-ray in the morning. I will also put him on Lasix 40 mg IV twice daily. Hopefully we can transition him to his routine dosing tomorrow. He is on Entresto which includes an ARB and a beta kar, which is Coreg. Hopefully we can monitor him closely and discharge him in the next 2 to 3 days. #[id number] REAGAN
[2019-04-17] MEDS ORDERED: cloNIDine HCL 0.1 MG TAB PO ONE (11:06)
[2019-04-17] MEDS ORDERED: ALBUTEROL SULFATE 2.5 MG/3 ML VIAL NEB PRN (12:00)
[2019-04-17] MEDS ORDERED: NITROGLYCERIN 0.4 MG 25 EA TAB SL PRN (12:00)
[2019-04-17] MEDS ORDERED: IV SET AND CAP CHANGE INJ INJ SCH (12:00)
[2019-04-17] MEDS ORDERED: SODIUM CHLORIDE 0.9% (FLUSH) 10 ML SYG IV PRN (12:00)
[2019-04-17] MEDS ORDERED: ACETAMINOPHEN 325 MG TAB PO PRN (12:00)
[2019-04-17] MEDS ORDERED: ONDANSETRON INJ 4 MG/2 ML VIAL IV PRN (12:00)
[2019-04-17] MEDS: IPRATROPIUM/ALBUTEROL 3 ML VIAL INH SCH ×3 (12:17→19:49)
[2019-04-17] MEDS: FUROSEMIDE INJ 40 MG/4 ML VIAL IV SCH (17:15)
[2019-04-17] MEDS: ATORVASTATIN 20 MG TAB PO SCH (20:25)
[2019-04-17] MEDS: CARVEDILOL 3.125 MG TAB PO SCH (20:25)
[2019-04-17] MEDS: SODIUM CHLORIDE 0.9% (FLUSH) 10 ML SYG IV SCH (20:26)
[2019-04-17] MEDS ORDERED: ENOXAPARIN SODIUM 30 MG/0.3 ML SYG SUBCU SCH (21:00)
[2019-04-18] MEDS: PANTOPRAZOLE SODIUM TAB 40 MG PO SCH (06:08)
--- NOTE | 2019-04-18 07:35 | RAD ---
EXAM DESCRIPTION: Chest,1 View CLINICAL HISTORY: Congestive heart failure FINDINGS/ IMPRESSION: Comparison 04/17/2019 Prior cardiac surgery. Cardiomegaly. Atherosclerotic aorta. Vascular congestion, improved from previous study. Lungs are hyperinflated consistent with COPD Retrocardiac opacity likely atelectasis or possibly infiltrate. Small bilateral pleural effusions, slightly decreased on the left since previous study. Biapical pleural thickening Electronically signed by: Jim Guerra MD 04/18/2019 7:33 AM CDT
[2019-04-18] MEDS: IPRATROPIUM/ALBUTEROL 3 ML VIAL INH SCH ×4 (08:51→19:11)
[2019-04-18] MEDS: FUROSEMIDE INJ 40 MG/4 ML VIAL IV SCH ×2 (09:17→17:28)
[2019-04-18] MEDS: NITROGLYCERIN 2% 1 GM UD TOP SCH ×2 (09:17→15:13)
[2019-04-18] MEDS: CARVEDILOL 3.125 MG TAB PO SCH ×2 (09:17→20:28)
[2019-04-18] MEDS: SODIUM CHLORIDE 0.9% (FLUSH) 10 ML SYG IV SCH ×2 (09:18→20:30)
--- NOTE | 2019-04-18 13:09 | PN ---
SUPERVISING PHYSICIAN: Pavel Gagnon MD DATE: 04/18/19 SUBJECTIVE: The patient is sitting up in his chair eating his lunch. He is feeling much better. He has no complaints of nausea, vomiting, coughing, shortness of breath or chest pain. OBJECTIVE: VITAL SIGNS: Temperature 97.6. Heart rate 68. Blood pressure 173/70. Respiratory rate 18. O2 saturation 93% on room air. The patient's I&Os show a negative 3500 mL. RESPIRATORY: A few scattered crackles, but otherwise clear to auscultation. CARDIAC: Regular rate and rhythm. GASTROINTESTINAL: Abdomen is soft, nondistended, nontender. Bowel sounds are positive. NEUROLOGIC: Awake, alert and oriented times three. LABORATORY: WBCs 6,000, hemoglobin 12.8, hematocrit 37. Electrolytes are basically within normal limits with BUN 26, creatinine 1.23. His chest x-ray shows vascular congestion improved from previous study. Lungs are hyperinflated consistent with chronic obstructive pulmonary disease. Retrocardiac opacity likely atelectasis or possibly infiltrate. Small bilateral pleural effusion, slightly decreased on the left since previous study. Apical pleural thickening. All other labs and films have been reviewed via the EMR. ASSESSMENT: 1. Acute exacerbation of congestive heart failure, diastolic/systolic etiology and an ejection fraction of 40% per echocardiogram in 02/2019. 2. Hypertensive crisis, now resolved. 3. Chronic renal insufficiency with a baseline creatinine of 1.34. His creatinine on admission was 1.33. 4. Hypertension on medications. 5. Hyperlipidemia, currently on Lipitor. PLAN: We will continue present supportive care. I will continue him on his IV Lasix today and he will be changed to p.o. Lasix tomorrow. He is usually on Lasix 20 mg daily and I have increased that to 40 mg and he may need to go home on a higher amount of furosemide. I will hold on his chest x-ray and lab. Hopefully, he can be discharged tomorrow or the next day. [facility] when he is discharged for their home health followup. We will continue to monitor the patient closely and follow as needed. #[id number] [facility]
[2019-04-18] MEDS: SACUBITRIL VALSARTAN PO SCH (14:46)
[2019-04-18] MEDS: NON-FORMULARY MEDICATION 1 EA MIS (Travoprost [Travatan Z] 1 DROP) BOTH_EYES SCH (14:46)
[2019-04-18] MEDS ORDERED: ENOXAPARIN SODIUM 30 MG/0.3 ML SYG SUBCU SCH (18:03)
[2019-04-18] MEDS ORDERED: ENOXAPARIN SODIUM 40 MG/0.4 ML SYG SUBCU ONE (20:17)
[2019-04-18] MEDS: ATORVASTATIN 20 MG TAB PO SCH (20:28)
[2019-04-19] MEDS: PANTOPRAZOLE SODIUM TAB 40 MG PO SCH (06:35)
[2019-04-19] MEDS: IPRATROPIUM/ALBUTEROL 3 ML VIAL INH SCH (08:20)
[2019-04-19] MEDS: NON-FORMULARY MEDICATION 1 EA MIS (Travoprost [Travatan Z] 1 DROP) BOTH_EYES SCH (08:35)
[2019-04-19] MEDS: SACUBITRIL VALSARTAN PO SCH (08:35)
[2019-04-19] MEDS: CARVEDILOL 3.125 MG TAB PO SCH (08:57)
[2019-04-19] MEDS: NITROGLYCERIN 2% 1 GM UD TOP SCH (08:58)
[2019-04-19] MEDS: SODIUM CHLORIDE 0.9% (FLUSH) 10 ML SYG IV SCH (08:58)
[2019-04-19] MEDS ORDERED: FUROSEMIDE 40 MG TAB PO SCH (09:00)
[2019-04-19 09:34] VITALS: O2SAT 96
[2019-04-19 11:23] VITALS: BP 160/72; TEMP 98.1
--- NOTE | 2019-05-07 21:41 | DS ---
SUPERVISING PHYSICIAN: Jovnay Gagnon M.D. ADMITTING DIAGNOSIS: 1. Acute exacerbation of congestive heart failure, diastolic/systolic etiology and an ejection fraction of 40% per echocardiogram in 02/2019. 2. Hypertensive crisis, now resolved. 3. Chronic renal insufficiency with a baseline creatinine of 1.34. His creatinine on admission was 1.33. 4. Hypertension on medications. 5. Hyperlipidemia, currently on Lipitor. DISCHARGE DIAGNOSIS: 1. Acute on chronic exacerbation of congestive heart failure with a diastolic/systolic etiology with last ejection fraction in February 2019 being 40%. The patient showing good response to treatment. 2. Hypertensive crisis, resolved. 3. Chronic renal insufficiency improved with treatment. 4. Hypertension controlled on medications. 5. Hyperlipidemia, currently on Lipitor. REASON FOR HOSPITALIZATION: This is an 88-year-old male patient who presented to the Emergency Room for 24 hours of shortness of breath. He does have a history of congestive heart failure as well as coronary artery disease. He also felt like some chest pressure, but it was more from the shortness of breath than the substernal pain. There is no fever, but he did have a productive cough with a thick, white sputum. There was no nausea, vomiting, diarrhea or constipation. His initial vital signs in the Emergency Room showed a temperature of 97.9 with a heart rate 89, blood pressure 160/97. It went up to 181/78. Respiratory rate 28 to 32. O2 saturation 90% on 3 liters nasal cannula. Laboratory studies were completed and showed WBC 7,700, hemoglobin 12.4, hematocrit 37. D-dimer was slightly elevated at 1.63. Electrolytes were basically within normal limits with the exception of his BUN was 22, creatinine 1.33. BNP was 1,160. Urinalysis was unremarkable. Chest x-ray shows cardiomegaly, vascular congestion with mild interstitial edema, small left pleural effusion, prior cardiac surgery. Lungs are hyperinflated. Apical pleural thickening similar to previous study. No pneumothorax, no acute bony abnormality. He was given some Bumex in the Emergency Room as well as put on a nitroglycerin drip. His blood pressure did come down to 157/81. The nitro drip was discontinued and he was given Nitro paste. The patient was admitted in stable condition. LABORATORY: White count on admission was 7,700, at discharge was 6,000. Hemoglobin and hematocrit were stable and at discharge was 12.8 and 37.0 respectively with platelet count at 196,000. Differential showed to be without a left shift. He had a D-dimer that was elevated at 1.63. PT and PTT were normal. Chemistries on admission showed normal electrolytes as well as at discharge. BUN 22 and 26 at discharge, creatinine initially was 1.33 and at discharge had gone down to 1.23. Liver functions were all within normal limits. BNP was elevated at 1160. Urinalysis showed to be within normal limits. RADIOLOGY: Chest x-ray in the E. R. per radiology interpretation showed cardiomegaly with vascular congestion with mild interstitial edema with small pleural effusion. Please see that report for details. He also had a chest x- ray after admission and per radiology interpretation after initiation of treatment showed prior cardiac surgery, cardiomegaly, vascular congestion improved from previous study. The lungs were hyper inflated consistent with COPD. There was note of a retrocardiac opacity likely atelectasis or possibly infiltrate. Small bilateral pleural effusions slightly decreased on the left since previous exam. HOSPITAL COURSE: Mr. Gutierrez was admitted as noted for exacerbation of COPD and was started on Lasix and Nitro, and showed good response to treatment. Once his blood pressure was controlled, which on admission he had a blood pressure of 175/99, was showing to be short of breath with respirations 20, satting 94% on room air but afebrile at 97. After treatment and prior to discharge, on the morning of discharge his blood pressure was 160/72, satting 96% on room air, respirations 18. He showed good clinical response to treatment and was felt clinically stable enough to continue with outpatient management. PHYSICAL EXAMINATION ON DISCHARGE: VITAL SIGNS: temperature 98.1, pulse 72, blood pressure 160/72, respirations 18, satting 96% on room air. GENERAL: The patient appeared to be in no acute distress resting comfortably. CHEST: Lung sounds were much improved from previous exam, just slightly diminished towards the bases. HEART: Regular rate and rhythm. ABDOMEN: Soft, nondistended. Positive bowel sounds. EXTREMITIES: Without edema. NEUROLOGIC: He is alert and oriented times three. PLAN: Mr. Gutierrez is discharged on 04/19/19 with instructions to followup with Dr. Silveira on 04/24/19 at 10:15 AM. He was to resume his medications as instructed and given warnings to return to the hospital should he have any worsening or concerning symptoms. Diet at discharge was low sodium diet. Activity is increase as tolerated. Medications at discharge included Lasix 20 mg daily, #30, to be refilled by Dr. Silveira. All other medications were continued as is prior to admission. Condition on discharge was stable and improved. DISPOSITION: The patient is discharged home. #[id number] [facility]
== END 2019-04-19 12:00 | disposition home health service (06) | DRG 291 ==
LOC: ER 06:20 → MS 10:21 → OBSVTOIN 10:21
PROVIDERS: ADMIT Nurse Practitioner Acute Care; ATTEND Nurse Practitioner Family
DX: I13.0 Hypertensive heart and chronic kidney disease with heart failure and stage 1 through stage 4 chronic kidney disease, or unspecified chronic kidney disease (principal); I50.43 Acute on chronic combined systolic (congestive) and diastolic (congestive) heart failure; I16.9 Hypertensive crisis, unspecified; N18.9 Chronic kidney disease, unspecified; I25.10 Atherosclerotic heart disease of native coronary artery without angina pectoris; E78.5 Hyperlipidemia, unspecified; I25.2 Old myocardial infarction; Z95.1 Presence of aortocoronary bypass graft; Z87.891 Personal history of nicotine dependence; Z79.02 Long term (current) use of antithrombotics/antiplatelets; Z79.82 Long term (current) use of aspirin; Z79.899 Other long term (current) drug therapy; Z86.73 Personal history of transient ischemic attack (TIA), and cerebral infarction without residual deficits

== ENCOUNTER 2019-08-21 07:38 | Emergency (ER) | payer MEDICARE ==
[2019-08-21] MEDS ORDERED: OXYMETAZOLINE NASAL SPRAY 15 ML BTTL BNAS PRN (08:02)
[2019-08-21] MEDS: OXYMETAZOLINE NASAL SPRAY 15 ML BTTL BNAS ONE (08:12)
--- NOTE | 2019-08-21 08:32 | ED.PDOC ---
History of Present Illness - General Chief Complaint: ENT Problem Stated Complaint: nose bleed Time Seen by Provider: 08/21/19 08:02 Source: patient Exam Limitations: no limitations - History of Present Illness Initial Comments: 88 yo M who presents for L sided nosebleed onset this morning. No hx of nosebleeds. Pt is on a blood thinner but does not remember which one, he states it is for CAD. On chart review, pt is only on Plavix. Denies recent f/c, congestion, runny nose. Denies lightheadedness, CP, SOLANO, SOB, weakness, numbness, syncope, falls, trauma. Allergies/Adverse Reactions: Allergies NO KNOWN ALLERGY Allergy (Verified 08/21/19 07:53) Home Medications: Ambulatory Orders Travoprost [Travatan Z] 1 drop BOTH_EYES DAILY 12/22/18 Atorvastatin Calcium 40 mg PO BEDTIME 04/17/19 Carvedilol 6.25 mg PO BID 04/17/19 Clopidogrel Bisulfate [Clopidogrel] 75 mg PO DAILY 04/17/19 Potassium Chloride [K-Tab] 10 meq PO DAILY PRN 04/17/19 Sacubitril-Valsartan [Entresto 49-51 mg] 1 tab PO DAILY 04/17/19 Furosemide 20 mg PO DAILY #30 tab 04/19/19 Review of Systems - Review of Systems Constitutional: Denies: chills, fever EENTM: Denies: blurred vision, double vision Respiratory: Denies: cough, orthopnea, short of breath, stridor, wheezing Cardiology: Denies: chest pain, edema, palpitations, syncope Gastrointestinal/Abdominal: Denies: abdominal pain, constipation, diarrhea, nausea, vomiting Genitourinary: Denies: dysuria, frequency, hematuria Musculoskeletal: Denies: back pain, neck pain Skin: Denies: change in color, rash Neurological: Denies: headache, numbness, weakness Past Medical History (General) - Patient Medical History Hx Seizures: No Hx Stroke: Yes - TIA Hx Dementia: No Hx Asthma: No Hx of COPD: No Hx Cardiac Disorders: Yes Hx Congestive Heart Failure: No Hx Pacemaker: No Hx Hypertension: Yes Hx Thyroid Disease: No Hx Diabetes: No Hx Gastroesophageal Reflux: No Hx Renal Disease: No Hx Cancer: Yes - skin Hx of HIV: No Hx Hepatitis C: No Hx MRSA: No Surgical History: coronary bypass surgery - Vaccination History Hx Tetanus, Diphtheria Vaccination: No Hx Influenza Vaccination: Yes Hx Pneumococcal Vaccination: Yes - Social History Hx Tobacco Use: No Hx Alcohol Use: No Hx Substance Use: No Hx Substance Use Treatment: No Hx Depression: No Hx Physical Abuse: No Hx Emotional Abuse: No Family Medical History - Family History Father Family History: No Known Living Status: Hx Family Hypertension: Yes - parents Hx Cardiac Disease: Yes - parents Hx Family;Other: both parents when he was young Physical Exam - Physical Exam General Appearance: Alert, No apparent distress Eye Exam: bilateral other - no pale conjunctiva Nasal Exam: dried blood, other - no active bleeding Throat Exam: normal mouth inspection, pharynx normal Neck: non-tender, supple Cardiovascular/Respiratory: regular rate, rhythm, normal peripheral pulses Neurologic: no motor/sensory deficits, alert, normal mood/affect Skin Exam: warm/dry, other - no cyanosis Progress - Progress Progress: Pt is feeling asymptomatic at this time, no further bleeding in ED. BP improved. I have explained and reviewed all results with the pt. I have encouraged afrin only for the next three days as needed for nosebleeds, instructed on how to use nasal clamp if needed and when to return to the ED. I explained that emergent conditions may arise and to return to the ER for new, worsening, or any persistent conditions. I've explained the importance of f/u for recheck. All questions and concerns addressed at this time. Pt understands and agrees with plan. Pt well appearing, NAD, is stable for discharge. Emily Wheeler MD Emergency Medicine Physician Billing Number [id number] - EKG/XRAY/CT CT Ordered: No CT Interpretation Call Back: No Departure - Departure Clinical Impression: Anterior epistaxis Time of Disposition: 09:01 Disposition: Discharge to Home or Self Care Health Concerns: condition: stable Departure Forms: ED Discharge - Pt. Copy, Patient Portal Self Enrollment Instructions: Nosebleeds (DC) Referrals: Cedrick Silveira III, MD [Primary Care Provider] - 1-5 Days Home Medications: Ambulatory Orders Travoprost [Travatan Z] 1 drop BOTH_EYES DAILY 12/22/18 Atorvastatin Calcium 40 mg PO BEDTIME 04/17/19 Carvedilol 6.25 mg PO BID 04/17/19 Clopidogrel Bisulfate [Clopidogrel] 75 mg PO DAILY 08/05/19 Potassium Chloride [K-Tab] 10 meq PO DAILY PRN 04/17/19 Sacubitril-Valsartan [Entresto 49-51 mg] 1 tab PO DAILY 04/17/19 Furosemide 20 mg PO DAILY #30 tab 04/19/19 Additional Instructions: Follow up: [facility] As needed, if symptoms worsen
[2019-08-21 09:17] VITALS: BP 171/88; TEMP 97.1; O2SAT 94
== END 2019-08-21 09:10 | disposition home or self-care (01) ==
LOC: ER 07:38
DX: R04.0 Epistaxis (principal); I25.10 Atherosclerotic heart disease of native coronary artery without angina pectoris; I10 Essential (primary) hypertension; Z86.73 Personal history of transient ischemic attack (TIA), and cerebral infarction without residual deficits; Z85.828 Personal history of other malignant neoplasm of skin; Z79.02 Long term (current) use of antithrombotics/antiplatelets; Z95.1 Presence of aortocoronary bypass graft

== ENCOUNTER 2019-08-26 06:11 | Emergency (ER) | payer MEDICARE ==
--- NOTE | 2019-08-26 06:24 | ED.PDOC ---
History of Present Illness - General Time Seen by Provider: 08/26/19 06:17 Source: patient - History of Present Illness Initial Comments: 88 yo male who is bib EMS for cc nosebleed. Onset last night in left nares but seemed to subside with direct pressure until 4:30 am - recurred and woke pt up. Reports bleeding out of left nares only and also reports lots of blood running down his throat. Tried direct pressure at home but could not get it to stop - called EMS. Finally stopped en route with nasal clamp. Denies any other acute sx's. Denies chest pain, dyspnea, dizziness, palpitations, etc... Pt seen here 2 days ago for same issue and episode was able to resolve with simple pressure and pt was discharged to home. Pt has hx of CHF, CAD and takes ASA & Plavix daily. Allergies/Adverse Reactions: Allergies NO KNOWN ALLERGY Allergy (Verified 08/21/19 07:53) Home Medications: Ambulatory Orders Travoprost [Travatan Z] 1 drop BOTH_EYES DAILY 12/22/18 Atorvastatin Calcium 40 mg PO BEDTIME 04/17/19 Carvedilol 6.25 mg PO BID 04/17/19 Clopidogrel Bisulfate [Clopidogrel] 75 mg PO DAILY 04/17/19 Potassium Chloride [K-Tab] 10 meq PO DAILY PRN 04/17/19 Sacubitril-Valsartan [Entresto 49-51 mg] 1 tab PO DAILY 04/17/19 Furosemide 20 mg PO DAILY #30 tab 04/19/19 Review of Systems - Review of Systems Review of Systems: 08/26/19 06:56 as per HPI All other Systems: Reviewed and Negative Past Medical History (General) - Patient Medical History Hx Seizures: No Hx Stroke: Yes - TIA Hx Dementia: No Hx Asthma: No Hx of COPD: No Hx Cardiac Disorders: Yes Hx Congestive Heart Failure: No Hx Pacemaker: No Hx Hypertension: Yes Hx Thyroid Disease: No Hx Diabetes: No Hx Gastroesophageal Reflux: No Hx Renal Disease: No Hx Cancer: Yes - skin Hx of HIV: No Hx Hepatitis C: No Hx MRSA: No - Vaccination History Hx Tetanus, Diphtheria Vaccination: No Hx Influenza Vaccination: Yes Hx Pneumococcal Vaccination: Yes - Social History Hx Tobacco Use: No Hx Alcohol Use: No Hx Substance Use: No Hx Substance Use Treatment: No Hx Depression: No Hx Physical Abuse: No Hx Emotional Abuse: No Family Medical History - Family History Father Family History: No Known Living Status: Hx Family Hypertension: Yes - parents Hx Cardiac Disease: Yes - parents Hx Family;Other: both parents when he was young Physical Exam - Physical Exam General Appearance: Alert, No apparent distress Eye Exam: bilateral normal Ears, Nose, Throat: hearing grossly normal, normal pharynx, other - nasal clamp in place to soft nares, dried blood at BL nares, worse on left, dried blood in mouth as well Neck: non-tender, full range of motion, supple, normal inspection Respiratory: lungs clear, normal breath sounds Cardiovascular/Chest: normal peripheral pulses, regular rate, rhythm, no edema, no murmur Gastrointestinal/Abdominal: non tender, soft Back Exam: normal inspection, no CVA tenderness, no vertebral tenderness Extremity: normal range of motion, non-tender, normal inspection, no pedal edema, no calf tenderness Neurologic: manager drilling II-XII nml as tested, no motor/sensory deficits, alert, normal mood/affect, oriented x 3 Skin Exam: warm/dry, pallor Progress - Progress Progress: 08/26/19 06:30 Acute epistaxis -anterior vs posterior -consider acute blood loss anemia as pt reports soaking several bathroom towels this morning -denies any acute physical sx's. Given cardiac hx, consider ACS vs other -stat labs, cardiac work-up -continuous pressure working on arrival, will continue for now, step-up therapy as needed 08/26/19 07:07 -Sign out given to Dr. Torres at shift change who will f/u labs and is reassessing pt's nosebleed. Reji Baugh MD Billing #[id number] - EKG/XRAY/CT EKG: nonspecific ST T wave Chg - accelerated junctional rhythm with incomplete LBBB, HR 70, nonspecific ST changes anterior and lateral leads, no ST elevations >2 mm present, axis normal, intervals normal, appears largely unchanged from 04/17/19 EKG Departure - Departure Clinical Impression: Epistaxis, recurrent Referrals: Cedrick Silveira III, MD [Primary Care Provider] - 1-2 Weeks Home Medications: Ambulatory Orders Travoprost [Travatan Z] 1 drop BOTH_EYES DAILY 12/22/18 Atorvastatin Calcium 40 mg PO BEDTIME 04/17/19 Carvedilol 6.25 mg PO BID 04/17/19 Clopidogrel Bisulfate [Clopidogrel] 75 mg PO DAILY 04/17/19 Potassium Chloride [K-Tab] 10 meq PO DAILY PRN 04/17/19 Sacubitril-Valsartan [Entresto 49-51 mg] 1 tab PO DAILY 04/17/19 Furosemide 20 mg PO DAILY #30 tab 04/19/19 Addendum entered and electronically signed by Jericho Torres MD 08/26/19 07:43: Departure - Departure Clinical Impression: Epistaxis, recurrent Disposition: Discharge to Home or Self Care Condition: Fair Instructions: Nosebleeds (DC) Diet: regular diet Activity: increase activity as tolerated Referrals: Cedrick Silveira III, MD [Primary Care Provider] - 1-2 Weeks Home Medications: Ambulatory Orders Travoprost [Travatan Z] 1 drop BOTH_EYES DAILY 12/22/18 Atorvastatin Calcium 40 mg PO BEDTIME 04/17/19 Carvedilol 6.25 mg PO BID 04/17/19 Clopidogrel Bisulfate [Clopidogrel] 75 mg PO DAILY 04/17/19 Potassium Chloride [K-Tab] 10 meq PO DAILY PRN 04/17/19 Sacubitril-Valsartan [Entresto 49-51 mg] 1 tab PO DAILY 04/17/19 Furosemide 20 mg PO DAILY #30 tab 04/19/19 Additional Instructions: patient with anterior epistaxis on left. failed manual compression. blood clot removed and 4.5cm rhinorocket placed under direct visualization. good hemostasis. monitored another 45 minutes. hold plavix 4 days. needs to be removed wednesday am here. after it is removed he needs to use ocean spray nasal spray q1 hr for a few days to prevent rebleed. can also use a thin layer of vaseline directly applied with a q tip. er warnings given. dc for fu wednesday. ED Addendum - ED Addendum Addendum: patient with anterior epistaxis on left. failed manual compression. blood clot removed and 4.5cm rhinorocket placed under direct visualization. good hemostasis. monitored another 45 minutes. r/b explained prior. hold plavix 4 days. needs to be removed wednesday here. after it is removed he needs to use ocean spray nasal spray q1 hr for a few days to prevent rebleed. can also use a thin layer of vaseline directly applied with a q tip. er warnings given. labs with mild anemia. no symptoms of anemia. vitals stable. dc for fu wednesday. 08/26/19 06:30 EKG STAT 08/26/19 06:50 TYPE AND SCREEN Stat Laboratory Results - last 24 hr 08/26/19 08/26/19 08/26/19 06:35 06:35 06:35 WBC 5.9 RBC 3.20 L Hgb 9.9 L Hct 29.8 L MCV 93.0 MCH 30.8 MCHC 33.1 RDW 14.2 Plt Count 234 MPV 7.1 L Absolute Neuts (auto) 3.80 Absolute Lymphs (auto) 1.20 Absolute Monos (auto) 0.50 Absolute Eos (auto) 0.30 Absolute Basos (auto) 0.10 Neutrophils % 64.9 Lymphocytes % 19.9 L Monocytes % 8.9 Eosinophils % 5.4 H Basophils % 0.9 PT 10.4 INR 1.04 PTT (SP) 25.6 Sodium 139 Potassium 4.3 Chloride 107 Carbon Dioxide 27 Anion Gap 9.3 L BUN 29 H Creatinine 1.53 H BUN/Creatinine Ratio 19.0 Random Glucose 118 H Serum Osmolality 284.5 Calcium 8.6 Troponin I 08/26/19 06:35 WBC RBC Hgb Hct MCV MCH MCHC RDW Plt Count MPV Absolute Neuts (auto) Absolute Lymphs (auto) Absolute Monos (auto) Absolute Eos (auto) Absolute Basos (auto) Neutrophils % Lymphocytes % Monocytes % Eosinophils % Basophils % PT INR PTT (SP) Sodium Potassium Chloride Carbon Dioxide Anion Gap BUN Creatinine BUN/Creatinine Ratio Random Glucose Serum Osmolality Calcium Troponin I 0.04
[2019-08-26] MEDS ORDERED: LIDOCAINE 1% W/ EPINEPHRINE 20 ML VIAL INJ ONE (06:50)
[2019-08-26] MEDS ORDERED: OXYMETAZOLINE NASAL SPRAY 15 ML BTTL ONE (06:50)
[2019-08-26 19:08] VITALS: TEMP 98
--- NOTE | 2019-08-26 19:27 | ED.PDOC ---
History of Present Illness - General Chief Complaint: ENT Problem Stated Complaint: Nose bleed x two days Time Seen by Provider: 08/26/19 19:24 Source: patient Exam Limitations: no limitations - History of Present Illness Initial Comments: the patient is a 88-year-old male presenting to the emergency room for the second time today secondary to epistaxis.it is again from the left nares. It appears that the Rhino Rocket that was in place had been pushed backwards and he started bleeding anteriorly. Estimated blood loss probably 15 cc this time. No signs or symptoms of anemia. Timing/Duration: 1/2 hour Severity: moderate Improving Factors: nothing Worsening Factors: nothing Associated Symptoms: denies symptoms Allergies/Adverse Reactions: Allergies NO KNOWN ALLERGY Allergy (Verified 08/26/19 19:08) Home Medications: Ambulatory Orders Travoprost [Travatan Z] 1 drop BOTH_EYES DAILY 12/22/18 Atorvastatin Calcium 40 mg PO BEDTIME 04/17/19 Carvedilol 6.25 mg PO BID 04/17/19 Clopidogrel Bisulfate [Clopidogrel] 75 mg PO DAILY 04/17/19 Potassium Chloride [K-Tab] 10 meq PO DAILY PRN 04/17/19 Sacubitril-Valsartan [Entresto 49-51 mg] 1 tab PO DAILY 04/17/19 Furosemide 20 mg PO DAILY #30 tab 04/19/19 Review of Systems - Review of Systems Constitutional: States: no symptoms reported EENTM: States: see HPI Respiratory: States: no symptoms reported Cardiology: States: no symptoms reported Gastrointestinal/Abdominal: States: no symptoms reported Genitourinary: States: no symptoms reported Musculoskeletal: States: no symptoms reported Skin: States: no symptoms reported Neurological: States: no symptoms reported Endocrine: States: no symptoms reported All other Systems: No Change from Baseline Past Medical History (General) - Patient Medical History Hx Seizures: No Hx Stroke: Yes - TIA Hx Dementia: No Hx Asthma: No Hx of COPD: No Hx Cardiac Disorders: Yes Hx Congestive Heart Failure: No Hx Pacemaker: No Hx Hypertension: Yes Hx Thyroid Disease: No Hx Diabetes: No Hx Gastroesophageal Reflux: No Hx Renal Disease: No Hx Cancer: Yes - skin Hx of HIV: No Hx Hepatitis C: No Hx MRSA: No - Vaccination History Hx Tetanus, Diphtheria Vaccination: No Hx Influenza Vaccination: Yes Hx Pneumococcal Vaccination: Yes - Social History Hx Tobacco Use: No Hx Chewing Tobacco Use: No Hx Alcohol Use: No Hx Substance Use: No Hx Substance Use Treatment: No Hx Depression: No Hx Physical Abuse: No Hx Emotional Abuse: No Hx Suspected Abuse: No Family Medical History - Family History Father Family History: No Known Living Status: Hx Family Hypertension: Yes - parents Hx Cardiac Disease: Yes - parents Hx Family;Other: both parents when he was young Physical Exam - Physical Exam General Appearance: Alert, Comfortable, No apparent distress Eye Exam: bilateral normal Ears, Nose, Throat: hearing grossly normal - mildly decreased chronically bilaterally, normal pharynx, other - see history of present illness. 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 The shorter Rhino Rocket was deflated and removed. A 7.5 cm one was put in its place and inflated until in the bleeding was controlled. Patient tolerated this well. He will be allowed to go home. He needs to have this out in about 48-72 hours. ER warnings were given for any recurrence. Instructions are the same as previous otherwise. tyesha [email or web address] [id number] Departure - Departure Clinical Impression: Epistaxis Disposition: Discharge to Home or Self Care Condition: Fair Departure Forms: ED Discharge - Pt. Copy, Patient Portal Self Enrollment Instructions: Nosebleeds (DC) Diet: regular diet Activity: increase activity as tolerated Referrals: Cedrick Silveira III, MD [Primary Care Provider] - 1-2 Weeks Home Medications: Ambulatory Orders Travoprost [Travatan Z] 1 drop BOTH_EYES DAILY 12/22/18 Atorvastatin Calcium 40 mg PO BEDTIME 04/17/19 Carvedilol 6.25 mg PO BID 04/17/19 Clopidogrel Bisulfate [Clopidogrel] 75 mg PO DAILY 04/17/19 Potassium Chloride [K-Tab] 10 meq PO DAILY PRN 04/17/19 Sacubitril-Valsartan [Entresto 49-51 mg] 1 tab PO DAILY 04/17/19 Furosemide 20 mg PO DAILY #30 tab 04/19/19 Additional Instructions: the patient is an 88-year-old male presenting to the emergency room for the second time today secondary to epistaxis. The shorter Rhino Rocket was deflated and removed. A 7.5 cm one was put in its place and inflated until in the bleeding was controlled. Patient tolerated this well. He will be allowed to go home. He needs to have this out in about 48-72 hours. ER warnings were given for any recurrence. Instructions are the same as previous otherwise.
[2019-08-26 19:41] VITALS: BP 176/69; O2SAT 97
== END 2019-08-26 07:58 | disposition home or self-care (01) ==
LOC: ER 06:11
DX: R04.0 Epistaxis (principal); I44.7 Left bundle-branch block, unspecified; I51.9 Heart disease, unspecified; I10 Essential (primary) hypertension; Z85.828 Personal history of other malignant neoplasm of skin; Z86.73 Personal history of transient ischemic attack (TIA), and cerebral infarction without residual deficits; Z79.02 Long term (current) use of antithrombotics/antiplatelets; Z79.899 Other long term (current) drug therapy

== ENCOUNTER → 2019-09-04 | Outpatient (CLI) | payer MEDICARE | LOC: GMAL 16:58 | PROVIDERS: ATTEND Family Medicine | DX: D50.8 Other iron deficiency anemias (principal); I50.22 Chronic systolic (congestive) heart failure ==

== ENCOUNTER → 2019-09-21 | Outpatient (CLI) | payer MEDICARE | LOC: GMAL 10:28 | PROVIDERS: ATTEND Family Medicine | DX: D50.8 Other iron deficiency anemias (principal); I13.0 Hypertensive heart and chronic kidney disease with heart failure and stage 1 through stage 4 chronic kidney disease, or unspecified chronic kidney disease; N18.9 Chronic kidney disease, unspecified; I50.22 Chronic systolic (congestive) heart failure ==